=== PATIENT | female | born 1930 | race Asian ===

== ENCOUNTER 2017-07-28 13:57 | Inpatient (IN) | payer MEDICARE, OTHER ==
[2017-07-28] MEDS ORDERED: PROPOFOL 100 ML (14:12)
[2017-07-28] MEDS: SODIUM CHLORIDE 0.9% 1L BAG IV* (14:15)
[2017-07-28 14:29] LABS: ADD MAN DIFF? NO
[2017-07-28 14:44] LABS: BASOPHILS % 0.3 % (0.0-2.0); EOSINOPHILS # 0.3 10^3/ul (0.0-0.5); EOSINOPHILS % 2.9 % (0.0-7.0); HEMATOCRIT 38.5 % (37.0-47.0); HEMOGLOBIN 11.7 g/dl (12.0-16.0); LYMPHOCYTES % 41.1 % (15.0-51.0); MEAN CORPUSCULAR HEMOGLOBIN 29.1 pg (29.0-33.0); MEAN CORPUSCULAR HGB CONC 30.4 g/dl (32.0-37.0); MEAN CORPUSCULAR VOLUME 95.8 fl (82.0-101.0); MEAN PLATELET VOLUME 9.9 fl (7.4-10.4); MONOCYTE # 0.3 10^3/ul (0.3-0.9); MONOCYTES % 3.1 % (0.0-11.0); NEUTROPHIL # 4.8 10^3/ul (1.6-7.5); NEUTROPHILS % 49.9 % (39.0-77.0); NUCLEATED RED BLOOD CELLS% 0.2 /100WBC (0.0-0.0); PLATELET COUNT 230 10^3/UL (140-415); RED BLOOD COUNT 4.02 10^6/ul (4.20-5.40); RED CELL DISTRIBUTION WIDTH 14.8 % (11.5-14.5)
[2017-07-28 14:44] LABS: WHITE BLOOD COUNT 9.7 10^3/ul (4.8-10.8)
[2017-07-28 14:48] LABS: ALANINE AMINOTRANSFERASE 114 IU/L (13-69); ALBUMIN 3.2 g/dl (3.3-4.9); ALBUMIN/GLOBULIN RATIO 0.91; ALKALINE PHOSPHATASE 197 IU/L (42-121); ANION GAP 21 (8-16); ASPARTATE AMINO TRANSFERASE 184 IU/L (15-46); BILIRUBIN,INDIRECT 0.2 mg/dl (0-1.1); BILIRUBIN,TOTAL 0.2 mg/dl (0.2-1.3); BLOOD UREA NITROGEN 42 mg/dl (7-20); CALCIUM 8.2 mg/dl (8.4-10.2); CARBON DIOXIDE 24 mmol/L (21-31); CHLORIDE 103 mmol/L (97-110); CREATININE 0.98 mg/dl (0.44-1.00); GLUCOSE 173 mg/dl (70-220); SODIUM 144 mmol/L (135-144); TOTAL PROTEIN 6.7 g/dl (6.1-8.1)
[2017-07-28 14:50] LABS: INR 1.22; PROTIME 15.6 Sec (11.9-14.9); PT RATIO 1.2
[2017-07-28 14:51] LABS: PARTIAL THROMBOPLASTIN TIME 38.6 Sec (25.0-35.0)
[2017-07-28 15:02] LABS: TROPONIN-I 0.233 ng/ml (0.00-0.12)
[2017-07-28] MEDS: FENTAnyl 50 MCG/ML VIAL IV ×2 (15:05→17:30)
[2017-07-28] MEDS: FENTAnyl (DRIP) 1000 mcg/100mL 100 ML IV ×3 (15:07→23:21)
[2017-07-28] MEDS ORDERED: NORepinephrine 8MG/250 ML (PMX 250 ML (15:55)
[2017-07-28] MEDS: PIPER-TAZO 3.375 GM IV (PMX) 100 ML IVPB (15:59)
[2017-07-28] MEDS ORDERED: ACETAMINOPHEN 325 MG TAB PO ×2 (16:30→17:00)
[2017-07-28] MEDS ORDERED: ONDANSETRON 4 MG INJ IV ×2 (16:30→17:00)
[2017-07-28] MEDS: VANCOMYCIN 1 GM (PMX) 250 ML IVPB (16:42)
[2017-07-28] MEDS ORDERED: VANCOMYCIN IV PER PHARMACY XX (17:00)
[2017-07-28] MEDS ORDERED: HYDROCODONE/APAP (5/325) TAB PO (17:00)
[2017-07-28 17:21] LABS: LACTIC ACID 1.6 mmol/L (0.5-2.0)
[2017-07-28 18:18] LABS: AADO2 Arterial 250.7 mmHg (7.0-24.0); Allen Test ACCEPTAB; Arterial Base Excess -1.8 mmol/L (-3.0-3); Arterial Blood Gas Oxygen Sat 97.1 mmHG (95.0-100.0); Arterial COHb 0.3 % (0.0-3.0); Arterial Fraction of Oxyhgb 96.6 % (93.0-99.0); Arterial HCO3 26.1 mmol/L (22.0-26.0); Arterial MetHb 0.2 % (0.0-1.5); Arterial Total Hemglobin 11.1 g/dl (12.0-18.0); Arterial pCO2 60.4 mmhg (35-45); MODE VENT - AC; Site Right Radial
[2017-07-28] MEDS: MIDAZOLAM 1 MG/ML 2 ML INJ IV (18:41)
[2017-07-28 19:28] LABS: HEPATITIS B SURFACE ANTIGEN NEGATIVE (NEGATIVE)
[2017-07-28] MEDS: MIDAZOLAM (DRIP) 50 mg/50 mL 50 ML IV (19:29)
[2017-07-28 19:36] LABS: LACTIC ACID 1.5 mmol/L (0.5-2.0)
[2017-07-28 19:42] LABS: ADD UMIC YES; UR AMORPHOUS CRYSTAL MODERATE /HPF (NONE SEEN); UR ASCORBIC ACID NEGATIVE (NEGATIVE); UR BACTERIA FEW /HPF (NONE SEEN); UR BILIRUBIN (Dip) NEGATIVE (NEGATIVE); UR BLOOD (Dip) 3+ mg/dL (NEGATIVE); UR CLARITY CLOUDY (CLEAR); UR COLOR AMBER (YELLOW); UR GLUCOSE (Dip) 1+ mg/dL (NEGATIVE); UR HYALINE CAST FEW /HPF (NONE SEEN); UR KETONES (Dip) NEGATIVE (NEGATIVE); UR LEUKOCYTE ESTERASE (Dip) 1+ Leu/ul (NEGATIVE); UR MUCUS FEW /HPF (NONE SEEN); UR NITRITE (Dip) NEGATIVE (NEGATIVE); UR NONSQUAMOUS EPITHELIAL CELL 1 /HPF (NONE SEEN); UR RBC 118 /HPF (0-5); UR SQUAMOUS EPITHELIAL CELL FEW /HPF (FEW); UR TOTAL PROTEIN (Dip) 3+ mg/dl (NEGATIVE); UR UROBILINOGEN (Dip) 2+ mg/dL (NEGATIVE); UR WBC 79 /HPF (0-5)
[2017-07-28 19:45] LABS: HEPATITIS B SURFACE ANTIBODY POSITIVE (NEGATIVE)
[2017-07-28 19:45] LABS: HEPATITIS C VIRAL ANTIBODY NEGATIVE (NEGATIVE)
[2017-07-28 19:46] LABS: HIV 1&2 ANTIBODY NEGATIVE (NEGATIVE)
[2017-07-28] MEDS: NORepinephrine 8MG/250 ML (PMX 250 ML IV (19:59)
[2017-07-28 20:09] LABS: AMPHETAMINE/METHAMPHETAMINE Negative (NEGATIVE); BARBITURATES Negative (NEGATIVE); BENZODIAZEPINES Negative (NEGATIVE); CANNABINOIDS Negative (NEGATIVE); COCAINE Negative (NEGATIVE); OPIATES Negative (NEGATIVE)
[2017-07-28 20:10] LABS: AADO2 Arterial 148.7 mmHg (7.0-24.0); Allen Test ACCEPTAB; Arterial Base Excess 1.8 mmol/L (-3.0-3); Arterial Blood Gas Oxygen Sat 99.3 mmHG (95.0-100.0); Arterial COHb 0.3 % (0.0-3.0); Arterial Fraction of Oxyhgb 98.8 % (93.0-99.0); Arterial HCO3 27.5 mmol/L (22.0-26.0); Arterial MetHb 0.2 % (0.0-1.5); Arterial Total Hemglobin 10.5 g/dl (12.0-18.0); Arterial pCO2 47.8 mmhg (35-45); MODE VENT - AC; Site Right Radial
[2017-07-28] MEDS: SOD CHLORIDE 0.9% 1,000 ML IV (20:30)
[2017-07-29] MEDS: PIPER-TAZO 3.375 GM IV (PMX) 100 ML IVPB ×4 (00:43→21:08)
[2017-07-29] MEDS: MIDAZOLAM (DRIP) 50 mg/50 mL 50 ML IV ×2 (00:53→10:17)
[2017-07-29] MEDS: SOD CHLORIDE 0.9% 500 ML IV ×2 (02:31→08:55)
[2017-07-29 04:58] LABS: ADD MAN DIFF? NO
[2017-07-29 05:04] LABS: BASOPHILS % 0.1 % (0.0-2.0); EOSINOPHILS # 0.5 10^3/ul (0.0-0.5); EOSINOPHILS % 6.7 % (0.0-7.0); HEMOGLOBIN 8.9 g/dl (12.0-16.0); LYMPHOCYTES # 1.1 10^3/ul (0.8-2.9); LYMPHOCYTES % 15.8 % (15.0-51.0); MEAN CORPUSCULAR HEMOGLOBIN 29.2 pg (29.0-33.0); MEAN CORPUSCULAR HGB CONC 31.8 g/dl (32.0-37.0); MEAN CORPUSCULAR VOLUME 91.8 fl (82.0-101.0); MEAN PLATELET VOLUME 10.2 fl (7.4-10.4); MONOCYTE # 0.4 10^3/ul (0.3-0.9); MONOCYTES % 5.5 % (0.0-11.0); NEUTROPHIL # 5.1 10^3/ul (1.6-7.5); NEUTROPHILS % 71.6 % (39.0-77.0); PLATELET COUNT 159 10^3/UL (140-415); RED BLOOD COUNT 3.05 10^6/ul (4.20-5.40)
[2017-07-29 05:04] LABS: WHITE BLOOD COUNT 7.1 10^3/ul (4.8-10.8)
[2017-07-29 05:23] LABS: HEMOGLOBIN A1C 6.2 % (0-5.9)
[2017-07-29 05:32] LABS: ALANINE AMINOTRANSFERASE 103 IU/L (13-69); ALBUMIN/GLOBULIN RATIO 0.74; ALKALINE PHOSPHATASE 130 IU/L (42-121); ANION GAP 12 (8-16); ASPARTATE AMINO TRANSFERASE 119 IU/L (15-46); BILIRUBIN,INDIRECT 0.5 mg/dl (0-1.1); BILIRUBIN,TOTAL 0.5 mg/dl (0.2-1.3); BLOOD UREA NITROGEN 45 mg/dl (7-20); CALCIUM 7.3 mg/dl (8.4-10.2); CARBON DIOXIDE 27 mmol/L (21-31); CHLORIDE 106 mmol/L (97-110); CHOL/HDL RATIO 1.8 RATIO; CHOLESTEROL 72 mg/dl (100-200); CREATININE 0.87 mg/dl (0.44-1.00); GLUCOSE 75 mg/dl (70-220); HDL CHOLESTEROL 38 mg/dl (33-92); LDL CHOLESTEROL,CALCULATED 20 mg/dl; POTASSIUM 3.6 mmol/L (3.5-5.1); SODIUM 141 mmol/L (135-144); TOTAL PROTEIN 4.7 g/dl (6.1-8.1); TRIGLYCERIDES 69 mg/dl (0-149)
[2017-07-29] MEDS: PANTOPRAZOLE 40 MG INJ IV (05:46)
[2017-07-29 11:56] LABS: TROPONIN-I 0.381 ng/ml (0.00-0.12)
[2017-07-29] MEDS: SOD CHLORIDE 0.45% 1,000 ML IV (14:57)
[2017-07-29] MEDS: DEXTROSE 5% IVPB (17:27)
[2017-07-29] MEDS: VANCOMYCIN IVPB (17:27)
[2017-07-30 04:57] LABS: ADD MAN DIFF? NO
[2017-07-30 05:00] LABS: WHITE BLOOD COUNT 11.8 10^3/ul (4.8-10.8)
[2017-07-30 05:00] LABS: BASOPHILS % 0.2 % (0.0-2.0); EOSINOPHILS # 0.7 10^3/ul (0.0-0.5); EOSINOPHILS % 5.6 % (0.0-7.0); HEMATOCRIT 28.2 % (37.0-47.0); HEMOGLOBIN 8.9 g/dl (12.0-16.0); LYMPHOCYTES # 0.9 10^3/ul (0.8-2.9); LYMPHOCYTES % 7.7 % (15.0-51.0); MEAN CORPUSCULAR HGB CONC 31.6 g/dl (32.0-37.0); MEAN CORPUSCULAR VOLUME 91.9 fl (82.0-101.0); MEAN PLATELET VOLUME 10.6 fl (7.4-10.4); MONOCYTE # 0.5 10^3/ul (0.3-0.9); MONOCYTES % 4.2 % (0.0-11.0); NEUTROPHIL # 9.7 10^3/ul (1.6-7.5); NEUTROPHILS % 81.8 % (39.0-77.0); PLATELET COUNT 169 10^3/UL (140-415); RED BLOOD COUNT 3.07 10^6/ul (4.20-5.40)
[2017-07-30] MEDS: PIPER-TAZO 3.375 GM IV (PMX) 100 ML IVPB ×5 (05:21→23:26)
[2017-07-30] MEDS: PANTOPRAZOLE 40 MG INJ IV (05:22)
[2017-07-30] MEDS: SOD CHLORIDE 0.45% 1,000 ML IV ×2 (05:22→22:48)
[2017-07-30 05:23] LABS: AMMONIA < 9 umol/l (9-30)
[2017-07-30 05:24] LABS: MAGNESIUM 1.9 mg/dl (1.7-2.5)
[2017-07-30 05:25] LABS: ALANINE AMINOTRANSFERASE 94 IU/L (13-69); ALBUMIN 2.1 g/dl (3.3-4.9); ALBUMIN/GLOBULIN RATIO 0.75; ALKALINE PHOSPHATASE 138 IU/L (42-121); ANION GAP 11 (8-16); ASPARTATE AMINO TRANSFERASE 91 IU/L (15-46); BILIRUBIN,INDIRECT 0.5 mg/dl (0-1.1); BILIRUBIN,TOTAL 0.5 mg/dl (0.2-1.3); BLOOD UREA NITROGEN 38 mg/dl (7-20); CALCIUM 7.5 mg/dl (8.4-10.2); CARBON DIOXIDE 25 mmol/L (21-31); CHLORIDE 109 mmol/L (97-110); GLUCOSE 53 mg/dl (70-220); POTASSIUM 3.4 mmol/L (3.5-5.1); SODIUM 142 mmol/L (135-144); TOTAL PROTEIN 4.9 g/dl (6.1-8.1)
[2017-07-30] MEDS: NACL 0.9% 3 ML SYG IV (06:33)
[2017-07-30] MEDS: POTASSIUM CHLORIDE 20 MEQ POWDER FOR ORAL SOLN NGT (14:55)
[2017-07-30] MEDS: VANCOMYCIN IVPB (17:30)
[2017-07-30] MEDS: DEXTROSE 5% IVPB (17:30)
[2017-07-31] MEDS: PIPER-TAZO 3.375 GM IV (PMX) 100 ML IVPB ×4 (05:09→23:31)
[2017-07-31] MEDS: PANTOPRAZOLE 40 MG INJ IV (05:10)
[2017-07-31 05:12] LABS: ADD MAN DIFF? NO
[2017-07-31 05:16] LABS: BASOPHILS % 0.2 % (0.0-2.0); EOSINOPHILS # 0.5 10^3/ul (0.0-0.5); EOSINOPHILS % 4.4 % (0.0-7.0); HEMATOCRIT 26.6 % (37.0-47.0); HEMOGLOBIN 8.4 g/dl (12.0-16.0); LYMPHOCYTES # 1.3 10^3/ul (0.8-2.9); LYMPHOCYTES % 11.1 % (15.0-51.0); MEAN CORPUSCULAR HEMOGLOBIN 29.1 pg (29.0-33.0); MEAN CORPUSCULAR HGB CONC 31.6 g/dl (32.0-37.0); MEAN PLATELET VOLUME 11.1 fl (7.4-10.4); MONOCYTE # 0.9 10^3/ul (0.3-0.9); MONOCYTES % 7.2 % (0.0-11.0); NEUTROPHIL # 9.1 10^3/ul (1.6-7.5); NEUTROPHILS % 76.8 % (39.0-77.0); PLATELET COUNT 167 10^3/UL (140-415); RED BLOOD COUNT 2.89 10^6/ul (4.20-5.40); RED CELL DISTRIBUTION WIDTH 15.4 % (11.5-14.5)
[2017-07-31 05:16] LABS: WHITE BLOOD COUNT 11.8 10^3/ul (4.8-10.8)
[2017-07-31 05:44] LABS: ANION GAP 9 (8-16); BLOOD UREA NITROGEN 28 mg/dl (7-20); CALCIUM 7.5 mg/dl (8.4-10.2); CARBON DIOXIDE 29 mmol/L (21-31); CHLORIDE 108 mmol/L (97-110); CREATININE 0.77 mg/dl (0.44-1.00); GLUCOSE 130 mg/dl (70-220); MAGNESIUM 1.9 mg/dl (1.7-2.5); PHOSPHORUS 2.9 mg/dl (2.5-4.9); POTASSIUM 3.8 mmol/L (3.5-5.1); SODIUM 142 mmol/L (135-144)
[2017-07-31] MEDS ORDERED: hydrALAzine 20 MG INJ (10:18)
[2017-07-31] MEDS ORDERED: hydrALAzine 20 MG INJ IV (10:30)
[2017-07-31] MEDS: hydrALAzine 20 MG INJ IV (12:33)
[2017-07-31] MEDS: SOD CHLORIDE 0.45% 1,000 ML IV (12:36)
[2017-07-31 12:41] LABS: VANCOMYCIN,TROUGH 6.9 ug/ml (10.0-20.0)
[2017-07-31] MEDS: VANCOMYCIN 1 GM 250 ML IVPB (14:00)
[2017-07-31] MEDS: LORAZEPAM 2 MG INJ IV (19:54)
[2017-07-31] MEDS: morphine 2 MG INJ IV (23:19)
[2017-08-01] MEDS: SOD CHLORIDE 0.45% 1,000 ML IV ×3 (02:11→22:08)
[2017-08-01] MEDS: PANTOPRAZOLE 40 MG INJ IV (05:07)
[2017-08-01] MEDS: PIPER-TAZO 3.375 GM IV (PMX) 100 ML IVPB ×4 (05:07→23:45)
[2017-08-01 05:15] LABS: ADD MAN DIFF? NO
[2017-08-01 05:18] LABS: WHITE BLOOD COUNT 9.8 10^3/ul (4.8-10.8)
[2017-08-01 05:18] LABS: BASOPHILS % 0.1 % (0.0-2.0); EOSINOPHILS % 10.1 % (0.0-7.0); HEMATOCRIT 25.5 % (37.0-47.0); HEMOGLOBIN 8.1 g/dl (12.0-16.0); LYMPHOCYTES # 1.2 10^3/ul (0.8-2.9); LYMPHOCYTES % 11.8 % (15.0-51.0); MEAN CORPUSCULAR HEMOGLOBIN 29.7 pg (29.0-33.0); MEAN CORPUSCULAR HGB CONC 31.8 g/dl (32.0-37.0); MEAN CORPUSCULAR VOLUME 93.4 fl (82.0-101.0); MEAN PLATELET VOLUME 11.2 fl (7.4-10.4); MONOCYTE # 0.8 10^3/ul (0.3-0.9); MONOCYTES % 7.6 % (0.0-11.0); NEUTROPHIL # 6.9 10^3/ul (1.6-7.5); PLATELET COUNT 148 10^3/UL (140-415); RED BLOOD COUNT 2.73 10^6/ul (4.20-5.40); RED CELL DISTRIBUTION WIDTH 15.3 % (11.5-14.5)
[2017-08-01 05:45] LABS: ANION GAP 8 (8-16); BLOOD UREA NITROGEN 17 mg/dl (7-20); CALCIUM 7.9 mg/dl (8.4-10.2); CARBON DIOXIDE 31 mmol/L (21-31); CHLORIDE 106 mmol/L (97-110); CREATININE 0.63 mg/dl (0.44-1.00); GLUCOSE 116 mg/dl (70-220); MAGNESIUM 1.8 mg/dl (1.7-2.5); PHOSPHORUS 2.6 mg/dl (2.5-4.9); POTASSIUM 3.3 mmol/L (3.5-5.1); SODIUM 142 mmol/L (135-144)
[2017-08-01] MEDS: POTASSIUM CHLORIDE 50 ML IVPB ×3 (07:04→11:10)
[2017-08-01 08:46] LABS: AADO2 Arterial 104.7 mmHg (7.0-24.0); Allen Test ACCEPTAB; Arterial Base Excess 3.5 mmol/L (-3.0-3); Arterial Blood Gas Oxygen Sat 89.7 mmHG (95.0-100.0); Arterial Fraction of Oxyhgb 88.6 % (93.0-99.0); Arterial HCO3 28.3 mmol/L (22.0-26.0); Arterial MetHb 0.2 % (0.0-1.5); Arterial Total Hemglobin 9.3 g/dl (12.0-18.0); Arterial pCO2 43.8 mmhg (35-45); MODE VENT - AC; Site Right Radial
[2017-08-01] MEDS: morphine 2 MG INJ IV (11:31)
[2017-08-01] MEDS: hydrALAzine 20 MG INJ IV (12:19)
[2017-08-01] MEDS: VANCOMYCIN 1 GM 250 ML IVPB (14:24)
[2017-08-01] MEDS: LORAZEPAM 2 MG INJ IV (14:29)
[2017-08-01] MEDS: PERMETHRIN 5% 60 GM CR TOP (19:48)
[2017-08-02] MEDS: PIPER-TAZO 3.375 GM IV (PMX) 100 ML IVPB ×4 (05:33→23:45)
[2017-08-02 05:47] LABS: ADD MAN DIFF? NO
[2017-08-02 05:53] LABS: WHITE BLOOD COUNT 9.2 10^3/ul (4.8-10.8)
[2017-08-02 05:53] LABS: BASOPHILS % 0.3 % (0.0-2.0); EOSINOPHILS # 0.9 10^3/ul (0.0-0.5); EOSINOPHILS % 9.6 % (0.0-7.0); HEMATOCRIT 27.6 % (37.0-47.0); HEMOGLOBIN 8.6 g/dl (12.0-16.0); LYMPHOCYTES # 1.3 10^3/ul (0.8-2.9); LYMPHOCYTES % 13.8 % (15.0-51.0); MEAN CORPUSCULAR HEMOGLOBIN 28.9 pg (29.0-33.0); MEAN CORPUSCULAR HGB CONC 31.2 g/dl (32.0-37.0); MEAN CORPUSCULAR VOLUME 92.6 fl (82.0-101.0); MEAN PLATELET VOLUME 11.4 fl (7.4-10.4); MONOCYTE # 0.7 10^3/ul (0.3-0.9); MONOCYTES % 8.1 % (0.0-11.0); NEUTROPHIL # 6.2 10^3/ul (1.6-7.5); NEUTROPHILS % 67.8 % (39.0-77.0); PLATELET COUNT 164 10^3/UL (140-415); RED BLOOD COUNT 2.98 10^6/ul (4.20-5.40); RED CELL DISTRIBUTION WIDTH 15.2 % (11.5-14.5)
[2017-08-02] MEDS: PANTOPRAZOLE 40 MG INJ IV (06:09)
[2017-08-02 06:18] LABS: ALBUMIN 2.4 g/dl (3.3-4.9); ANION GAP 10 (8-16); BLOOD UREA NITROGEN 14 mg/dl (7-20); CALCIUM 8.2 mg/dl (8.4-10.2); CARBON DIOXIDE 28 mmol/L (21-31); CHLORIDE 107 mmol/L (97-110); CREATININE 0.58 mg/dl (0.44-1.00); GLUCOSE 65 mg/dl (70-220); MAGNESIUM 1.7 mg/dl (1.7-2.5); PHOSPHORUS 2.4 mg/dl (2.5-4.9); POTASSIUM 3.9 mmol/L (3.5-5.1); SODIUM 141 mmol/L (135-144)
[2017-08-02] MEDS ORDERED: EPINEPHrine 0.1 MG/ML SYG (07:00)
[2017-08-02] MEDS ORDERED: NA BICARBONATE 8.4% 50 ML SYG (07:00)
[2017-08-02] MEDS: DEXTROSE 5%-0.45% NACL 1,000 ML IV (08:20)
[2017-08-02] MEDS: LORAZEPAM 2 MG INJ IV (09:38)
[2017-08-02] MEDS: VANCOMYCIN 1 GM 250 ML IVPB (14:33)
[2017-08-02] MEDS: morphine 2 MG INJ IV (14:33)
[2017-08-02] MEDS: hydrALAzine 20 MG INJ IV (16:23)
[2017-08-03] MEDS: DEXTROSE 5%-0.45% NACL 1,000 ML IV ×2 (00:23→11:57)
[2017-08-03] MEDS: LORAZEPAM 2 MG INJ IV ×2 (00:23→08:02)
[2017-08-03] MEDS: PANTOPRAZOLE 40 MG INJ IV ×2 (05:09→09:39)
[2017-08-03] MEDS: PIPER-TAZO 3.375 GM IV (PMX) 100 ML IVPB ×4 (05:09→21:08)
[2017-08-03] MEDS: morphine 2 MG INJ IV ×4 (05:32→21:05)
[2017-08-03 05:38] LABS: ADD MAN DIFF? NO
[2017-08-03 05:44] LABS: BASOPHILS % 0.3 % (0.0-2.0); EOSINOPHILS # 0.9 10^3/ul (0.0-0.5); HEMATOCRIT 29.7 % (37.0-47.0); HEMOGLOBIN 9.2 g/dl (12.0-16.0); LYMPHOCYTES % 13.4 % (15.0-51.0); MEAN CORPUSCULAR HEMOGLOBIN 29.2 pg (29.0-33.0); MEAN CORPUSCULAR VOLUME 94.3 fl (82.0-101.0); MEAN PLATELET VOLUME 11.5 fl (7.4-10.4); MONOCYTE # 0.9 10^3/ul (0.3-0.9); MONOCYTES % 11.7 % (0.0-11.0); NEUTROPHIL # 4.8 10^3/ul (1.6-7.5); NEUTROPHILS % 62.2 % (39.0-77.0); PLATELET COUNT 195 10^3/UL (140-415); RED BLOOD COUNT 3.15 10^6/ul (4.20-5.40); RED CELL DISTRIBUTION WIDTH 15.3 % (11.5-14.5)
[2017-08-03 05:44] LABS: WHITE BLOOD COUNT 7.8 10^3/ul (4.8-10.8)
[2017-08-03 06:08] LABS: ALBUMIN 2.5 g/dl (3.3-4.9); ANION GAP 10 (8-16); BLOOD UREA NITROGEN 15 mg/dl (7-20); CALCIUM 8.2 mg/dl (8.4-10.2); CARBON DIOXIDE 27 mmol/L (21-31); CHLORIDE 105 mmol/L (97-110); CREATININE 0.56 mg/dl (0.44-1.00); GLUCOSE 146 mg/dl (70-220); MAGNESIUM 1.8 mg/dl (1.7-2.5); PHOSPHORUS 2.7 mg/dl (2.5-4.9); POTASSIUM 3.8 mmol/L (3.5-5.1); SODIUM 138 mmol/L (135-144)
[2017-08-03] MEDS: FUROSEMIDE 40 MG INJ IV ×2 (09:42→17:39)
[2017-08-03 13:03] LABS: VANCOMYCIN,TROUGH 9.5 ug/ml (10.0-20.0)
[2017-08-03] MEDS: VANCOMYCIN 1.25 GM in SOD CHLORIDE 0.9% 250 ML IVPB (16:57)
[2017-08-04] MEDS: DEXTROSE 5%-0.45% NACL 1,000 ML IV ×2 (00:30→11:02)
[2017-08-04] MEDS: PIPER-TAZO 3.375 GM IV (PMX) 100 ML IVPB ×5 (03:02→17:18)
[2017-08-04] MEDS: morphine 2 MG INJ IV ×3 (03:06→21:02)
[2017-08-04] MEDS: PANTOPRAZOLE 40 MG INJ IV (05:03)
[2017-08-04] MEDS: FUROSEMIDE 40 MG INJ IV ×2 (05:03→17:18)
[2017-08-04 05:37] LABS: ADD MAN DIFF? NO
[2017-08-04 05:42] LABS: WHITE BLOOD COUNT 6.7 10^3/ul (4.8-10.8)
[2017-08-04 05:42] LABS: BASOPHILS % 0.3 % (0.0-2.0); EOSINOPHILS % 15.2 % (0.0-7.0); HEMATOCRIT 23.7 % (37.0-47.0); HEMOGLOBIN 7.6 g/dl (12.0-16.0); LYMPHOCYTES # 1.2 10^3/ul (0.8-2.9); LYMPHOCYTES % 17.7 % (15.0-51.0); MEAN CORPUSCULAR HEMOGLOBIN 29.2 pg (29.0-33.0); MEAN CORPUSCULAR HGB CONC 32.1 g/dl (32.0-37.0); MEAN CORPUSCULAR VOLUME 91.2 fl (82.0-101.0); MEAN PLATELET VOLUME 11.2 fl (7.4-10.4); MONOCYTE # 0.8 10^3/ul (0.3-0.9); MONOCYTES % 11.6 % (0.0-11.0); NEUTROPHIL # 3.7 10^3/ul (1.6-7.5); NEUTROPHILS % 54.9 % (39.0-77.0); PLATELET COUNT 181 10^3/UL (140-415); RED CELL DISTRIBUTION WIDTH 15.2 % (11.5-14.5)
[2017-08-04 06:02] LABS: ANION GAP 8 (8-16); BLOOD UREA NITROGEN 14 mg/dl (7-20); CALCIUM 7.6 mg/dl (8.4-10.2); CARBON DIOXIDE 35 mmol/L (21-31); CHLORIDE 100 mmol/L (97-110); CREATININE 0.64 mg/dl (0.44-1.00); GLUCOSE 123 mg/dl (70-220); MAGNESIUM 1.6 mg/dl (1.7-2.5); PHOSPHORUS 2.4 mg/dl (2.5-4.9); POTASSIUM 3.2 mmol/L (3.5-5.1); SODIUM 140 mmol/L (135-144)
[2017-08-04 09:10] LABS: AADO2 Arterial 87.2 mmHg (7.0-24.0); Allen Test ACCEPTAB; Arterial Base Excess 9.9 mmol/L (-3.0-3); Arterial Blood Gas Oxygen Sat 93.6 mmHG (95.0-100.0); Arterial COHb 0.8 % (0.0-3.0); Arterial Fraction of Oxyhgb 92.6 % (93.0-99.0); Arterial HCO3 35.2 mmol/L (22.0-26.0); Arterial MetHb 0.3 % (0.0-1.5); Arterial Total Hemglobin 10.9 g/dl (12.0-18.0); Arterial pCO2 51.4 mmhg (35-45); MODE VENT - AC; Site Right Radial
[2017-08-04] MEDS: MAGNESIUM SULFATE 2 GM/50 ML 50 ML IVPB (11:01)
[2017-08-04] MEDS: hydrALAzine 20 MG INJ IV (11:02)
[2017-08-04] MEDS: VANCOMYCIN 1.25 GM in SOD CHLORIDE 0.9% 250 ML IVPB (15:10)
[2017-08-04] MEDS: KCL 30 MEQ in NS 250 ML IVPB X1 IVPB (16:35)
[2017-08-05] MEDS: PIPER-TAZO 3.375 GM IV (PMX) 100 ML IVPB ×5 (00:22→23:43)
[2017-08-05] MEDS: LORAZEPAM 2 MG INJ IV ×2 (00:29→19:24)
[2017-08-05] MEDS: DEXTROSE 5%-0.45% NACL 1,000 ML IV ×2 (04:52→16:35)
[2017-08-05] MEDS: FUROSEMIDE 40 MG INJ IV ×2 (05:06→18:03)
[2017-08-05] MEDS: morphine 2 MG INJ IV ×2 (05:06→15:09)
[2017-08-05] MEDS: PANTOPRAZOLE 40 MG INJ IV (05:06)
[2017-08-05 05:08] LABS: ADD MAN DIFF? NO
[2017-08-05 05:14] LABS: WHITE BLOOD COUNT 8.4 10^3/ul (4.8-10.8)
[2017-08-05 05:14] LABS: BASOPHILS % 0.1 % (0.0-2.0); EOSINOPHILS # 1.1 10^3/ul (0.0-0.5); EOSINOPHILS % 13.1 % (0.0-7.0); HEMATOCRIT 24.6 % (37.0-47.0); LYMPHOCYTES # 1.3 10^3/ul (0.8-2.9); LYMPHOCYTES % 15.6 % (15.0-51.0); MEAN CORPUSCULAR HEMOGLOBIN 29.2 pg (29.0-33.0); MEAN CORPUSCULAR HGB CONC 32.5 g/dl (32.0-37.0); MEAN CORPUSCULAR VOLUME 89.8 fl (82.0-101.0); MEAN PLATELET VOLUME 10.9 fl (7.4-10.4); MONOCYTE # 0.9 10^3/ul (0.3-0.9); MONOCYTES % 10.3 % (0.0-11.0); NEUTROPHIL # 5.1 10^3/ul (1.6-7.5); NEUTROPHILS % 60.7 % (39.0-77.0); PLATELET COUNT 208 10^3/UL (140-415); RED BLOOD COUNT 2.74 10^6/ul (4.20-5.40); RED CELL DISTRIBUTION WIDTH 15.3 % (11.5-14.5)
[2017-08-05 06:19] LABS: ALBUMIN 2.2 g/dl (3.3-4.9); ANION GAP 8 (8-16); BLOOD UREA NITROGEN 12 mg/dl (7-20); CALCIUM 7.5 mg/dl (8.4-10.2); CARBON DIOXIDE 37 mmol/L (21-31); CHLORIDE 95 mmol/L (97-110); CREATININE 0.64 mg/dl (0.44-1.00); GLUCOSE 132 mg/dl (70-220); MAGNESIUM 1.8 mg/dl (1.7-2.5); PHOSPHORUS 2.5 mg/dl (2.5-4.9); SODIUM 137 mmol/L (135-144)
[2017-08-05 06:39] LABS: POTASSIUM 2.8 mmol/L (3.5-5.1)
[2017-08-05] MEDS: MAGNESIUM SULFATE 1 GM/D5W 100 ML IVPB (08:36)
[2017-08-05] MEDS: POTASSIUM CHLORIDE 100 ML IVPB ×3 (09:52→14:24)
[2017-08-05 14:38] LABS: ANION GAP 7 (8-16); BLOOD UREA NITROGEN 12 mg/dl (7-20); CALCIUM 7.7 mg/dl (8.4-10.2); CARBON DIOXIDE 40 mmol/L (21-31); CHLORIDE 91 mmol/L (97-110); CREATININE 0.62 mg/dl (0.44-1.00); GLUCOSE 117 mg/dl (70-220); POTASSIUM 3.3 mmol/L (3.5-5.1); SODIUM 135 mmol/L (135-144)
[2017-08-05] MEDS: VANCOMYCIN 1.25 GM in SOD CHLORIDE 0.9% 250 ML IVPB (15:52)
[2017-08-05] MEDS: PERMETHRIN 5% 60 GM CR TOP (22:14)
[2017-08-05 23:07] LABS: POTASSIUM 3.1 mmol/L (3.5-5.1)
[2017-08-05] MEDS: POTASSIUM CHLORIDE 30 MEQ in DEXTROSE 5% 250 ML IV (23:45)
[2017-08-06] MEDS: morphine 2 MG INJ IV ×4 (00:15→20:55)
[2017-08-06 04:57] LABS: ADD MAN DIFF? NO
[2017-08-06 05:21] LABS: ALBUMIN 2.2 g/dl (3.3-4.9); BLOOD UREA NITROGEN 12 mg/dl (7-20); CALCIUM 7.6 mg/dl (8.4-10.2); CHLORIDE 91 mmol/L (97-110); CREATININE 0.62 mg/dl (0.44-1.00); GLUCOSE 140 mg/dl (70-220); MAGNESIUM 1.9 mg/dl (1.7-2.5); PHOSPHORUS 2.4 mg/dl (2.5-4.9); POTASSIUM 3.4 mmol/L (3.5-5.1); SODIUM 135 mmol/L (135-144)
[2017-08-06 05:27] LABS: ANION GAP 7 (8-16)
[2017-08-06] MEDS: PANTOPRAZOLE 40 MG INJ IV (05:27)
[2017-08-06] MEDS: PIPER-TAZO 3.375 GM IV (PMX) 100 ML IVPB ×3 (05:27→17:11)
[2017-08-06 05:28] LABS: CARBON DIOXIDE 40 mmol/L (21-31)
[2017-08-06] MEDS: DEXTROSE 5%-0.45% NACL 1,000 ML IV (05:33)
[2017-08-06] MEDS: FUROSEMIDE 40 MG INJ IV ×2 (05:48→17:10)
[2017-08-06 05:58] LABS: WHITE BLOOD COUNT 7.2 10^3/ul (4.8-10.8)
[2017-08-06 05:58] LABS: EOSINOPHILS # 1.1 10^3/ul (0.0-0.5); EOSINOPHILS % 14.8 % (0.0-7.0); HEMATOCRIT 22.8 % (37.0-47.0); HEMOGLOBIN 7.4 g/dl (12.0-16.0); LYMPHOCYTES # 1.4 10^3/ul (0.8-2.9); LYMPHOCYTES % 18.9 % (15.0-51.0); MEAN CORPUSCULAR HEMOGLOBIN 28.9 pg (29.0-33.0); MEAN CORPUSCULAR HGB CONC 32.5 g/dl (32.0-37.0); MEAN CORPUSCULAR VOLUME 89.1 fl (82.0-101.0); MEAN PLATELET VOLUME 10.6 fl (7.4-10.4); MONOCYTE # 0.7 10^3/ul (0.3-0.9); MONOCYTES % 10.2 % (0.0-11.0); NEUTROPHILS % 55.8 % (39.0-77.0); PLATELET COUNT 202 10^3/UL (140-415); RED BLOOD COUNT 2.56 10^6/ul (4.20-5.40); RED CELL DISTRIBUTION WIDTH 15.5 % (11.5-14.5)
[2017-08-06] MEDS: POTASSIUM CHLORIDE 50 ML IVPB ×2 (10:28→12:31)
[2017-08-06] MEDS: LORAZEPAM 2 MG INJ IV (10:33)
[2017-08-06] MEDS: VANCOMYCIN 1.25 GM in SOD CHLORIDE 0.9% 250 ML IVPB (16:44)
[2017-08-06] MEDS: IVERMECTIN 3 MG TAB PO (17:11)
[2017-08-06 23:08] LABS: POTASSIUM 2.9 mmol/L (3.5-5.1)
[2017-08-07] MEDS: DEXTROSE 5%-0.45% NACL 1,000 ML IV ×2 (00:34→08:30)
[2017-08-07] MEDS: PIPER-TAZO 3.375 GM IV (PMX) 100 ML IVPB ×4 (00:34→17:09)
[2017-08-07] MEDS: POTASSIUM CHLORIDE 50 ML IVPB ×3 (00:48→02:51)
[2017-08-07] MEDS: morphine 2 MG INJ IV ×2 (04:54→10:24)
[2017-08-07 06:03] LABS: ADD MAN DIFF? NO
[2017-08-07] MEDS: FUROSEMIDE 40 MG INJ IV ×2 (06:06→17:09)
[2017-08-07] MEDS: PANTOPRAZOLE 40 MG INJ IV (06:06)
[2017-08-07 06:13] LABS: WHITE BLOOD COUNT 7.7 10^3/ul (4.8-10.8)
[2017-08-07 06:13] LABS: BASOPHILS % 0.3 % (0.0-2.0); EOSINOPHILS # 1.3 10^3/ul (0.0-0.5); EOSINOPHILS % 17.3 % (0.0-7.0); HEMATOCRIT 24.3 % (37.0-47.0); HEMOGLOBIN 7.9 g/dl (12.0-16.0); LYMPHOCYTES # 1.6 10^3/ul (0.8-2.9); LYMPHOCYTES % 21.4 % (15.0-51.0); MEAN CORPUSCULAR HEMOGLOBIN 28.8 pg (29.0-33.0); MEAN CORPUSCULAR HGB CONC 32.5 g/dl (32.0-37.0); MEAN CORPUSCULAR VOLUME 88.7 fl (82.0-101.0); MEAN PLATELET VOLUME 11.3 fl (7.4-10.4); MONOCYTE # 0.7 10^3/ul (0.3-0.9); MONOCYTES % 8.5 % (0.0-11.0); NEUTROPHILS % 52.2 % (39.0-77.0); PLATELET COUNT 261 10^3/UL (140-415); RED BLOOD COUNT 2.74 10^6/ul (4.20-5.40); RED CELL DISTRIBUTION WIDTH 15.5 % (11.5-14.5)
[2017-08-07 06:47] LABS: ALBUMIN 2.4 g/dl (3.3-4.9); BLOOD UREA NITROGEN 12 mg/dl (7-20); CALCIUM 7.8 mg/dl (8.4-10.2); CHLORIDE 90 mmol/L (97-110); CREATININE 0.69 mg/dl (0.44-1.00); GLUCOSE 115 mg/dl (70-220); MAGNESIUM 1.8 mg/dl (1.7-2.5); PHOSPHORUS 2.7 mg/dl (2.5-4.9); POTASSIUM 3.2 mmol/L (3.5-5.1); SODIUM 136 mmol/L (135-144)
[2017-08-07 06:54] LABS: ANION GAP 9 (8-16)
[2017-08-07 06:55] LABS: CARBON DIOXIDE 40 mmol/L (21-31)
[2017-08-07] MEDS: KCL 30 MEQ in NS 250 ML IVPB X1 IVPB (09:14)
[2017-08-07] MEDS: BISACODYL (EC) 5 MG TAB PO (10:23)
[2017-08-07 15:03] LABS: VANCOMYCIN,TROUGH 14.2 ug/ml (10.0-20.0)
[2017-08-07] MEDS: VANCOMYCIN 1.25 GM in SOD CHLORIDE 0.9% 250 ML IVPB (15:31)
[2017-08-07] MEDS: LORAZEPAM 2 MG INJ IV (19:06)
[2017-08-07] MEDS ORDERED: PERMETHRIN 5% 60 GM CR TOP (21:00)
[2017-08-07 23:22] LABS: BLOOD UREA NITROGEN 13 mg/dl (7-20); CALCIUM 7.9 mg/dl (8.4-10.2); CHLORIDE 91 mmol/L (97-110); CREATININE 0.74 mg/dl (0.44-1.00); GLUCOSE 122 mg/dl (70-220); SODIUM 135 mmol/L (135-144)
[2017-08-07 23:28] LABS: ANION GAP 7 (8-16)
[2017-08-07 23:34] LABS: CARBON DIOXIDE 40 mmol/L (21-31); POTASSIUM 2.8 mmol/L (3.5-5.1)
[2017-08-08] MEDS: POTASSIUM CHLORIDE 20 MEQ POWDER FOR ORAL SOLN GTB (00:21)
[2017-08-08] MEDS: PIPER-TAZO 3.375 GM IV (PMX) 100 ML IVPB ×5 (00:21→23:28)
[2017-08-08] MEDS: POTASSIUM CHLORIDE 50 ML IVPB ×3 (02:27→06:07)
[2017-08-08] MEDS: DIPHENHYDRAMINE 50 MG INJ IV ×2 (04:09→22:33)
[2017-08-08] MEDS: PANTOPRAZOLE 40 MG INJ IV (05:19)
[2017-08-08] MEDS: FUROSEMIDE 40 MG INJ IV ×2 (05:24→19:40)
[2017-08-08 05:40] LABS: ADD MAN DIFF? NO
[2017-08-08 05:46] LABS: WHITE BLOOD COUNT 7.9 10^3/ul (4.8-10.8)
[2017-08-08 05:46] LABS: BASOPHILS % 0.1 % (0.0-2.0); EOSINOPHILS # 1.4 10^3/ul (0.0-0.5); EOSINOPHILS % 17.3 % (0.0-7.0); HEMATOCRIT 24.9 % (37.0-47.0); HEMOGLOBIN 8.2 g/dl (12.0-16.0); LYMPHOCYTES # 1.7 10^3/ul (0.8-2.9); LYMPHOCYTES % 21.9 % (15.0-51.0); MEAN CORPUSCULAR HEMOGLOBIN 29.3 pg (29.0-33.0); MEAN CORPUSCULAR HGB CONC 32.9 g/dl (32.0-37.0); MEAN CORPUSCULAR VOLUME 88.9 fl (82.0-101.0); MEAN PLATELET VOLUME 10.7 fl (7.4-10.4); MONOCYTE # 0.7 10^3/ul (0.3-0.9); MONOCYTES % 8.8 % (0.0-11.0); NEUTROPHIL # 4.1 10^3/ul (1.6-7.5); NEUTROPHILS % 51.6 % (39.0-77.0); PLATELET COUNT 293 10^3/UL (140-415); RED CELL DISTRIBUTION WIDTH 15.7 % (11.5-14.5)
[2017-08-08 06:40] LABS: ANION GAP 10 (8-16); BLOOD UREA NITROGEN 13 mg/dl (7-20); CALCIUM 8.1 mg/dl (8.4-10.2); CARBON DIOXIDE 38 mmol/L (21-31); CHLORIDE 94 mmol/L (97-110); CREATININE 0.78 mg/dl (0.44-1.00); GLUCOSE 91 mg/dl (70-220); MAGNESIUM 2.1 mg/dl (1.7-2.5); POTASSIUM 3.7 mmol/L (3.5-5.1); SODIUM 138 mmol/L (135-144)
[2017-08-08 11:31] LABS: ANION GAP 9 (8-16); BLOOD UREA NITROGEN 13 mg/dl (7-20); CALCIUM 8.3 mg/dl (8.4-10.2); CARBON DIOXIDE 40 mmol/L (21-31); CHLORIDE 92 mmol/L (97-110); GLUCOSE 114 mg/dl (70-220); POTASSIUM 3.3 mmol/L (3.5-5.1); SODIUM 138 mmol/L (135-144)
[2017-08-08] MEDS: morphine 2 MG INJ IV (12:04)
[2017-08-08] MEDS: KCL 30 MEQ in NS 250 ML IVPB X1 IVPB (13:57)
[2017-08-08] MEDS: LORAZEPAM 2 MG INJ IV ×2 (15:49→23:28)
[2017-08-08] MEDS: VANCOMYCIN 1.25 GM in SOD CHLORIDE 0.9% 250 ML IVPB (15:59)
[2017-08-09] MEDS: morphine 2 MG INJ IV ×2 (03:59→22:09)
[2017-08-09 05:42] LABS: ADD MAN DIFF? NO
[2017-08-09 05:43] LABS: WHITE BLOOD COUNT 8.3 10^3/ul (4.8-10.8)
[2017-08-09 05:43] LABS: BASOPHILS % 0.1 % (0.0-2.0); EOSINOPHILS # 1.4 10^3/ul (0.0-0.5); EOSINOPHILS % 17.1 % (0.0-7.0); HEMATOCRIT 26.4 % (37.0-47.0); HEMOGLOBIN 8.6 g/dl (12.0-16.0); LYMPHOCYTES % 23.7 % (15.0-51.0); MEAN CORPUSCULAR HGB CONC 32.6 g/dl (32.0-37.0); MEAN CORPUSCULAR VOLUME 88.9 fl (82.0-101.0); MEAN PLATELET VOLUME 10.9 fl (7.4-10.4); MONOCYTE # 0.8 10^3/ul (0.3-0.9); MONOCYTES % 9.2 % (0.0-11.0); NEUTROPHIL # 4.1 10^3/ul (1.6-7.5); NEUTROPHILS % 49.5 % (39.0-77.0); PLATELET COUNT 313 10^3/UL (140-415); RED BLOOD COUNT 2.97 10^6/ul (4.20-5.40); RED CELL DISTRIBUTION WIDTH 15.8 % (11.5-14.5)
[2017-08-09 06:03] LABS: ANION GAP 9 (8-16); BLOOD UREA NITROGEN 16 mg/dl (7-20); CALCIUM 8.1 mg/dl (8.4-10.2); CARBON DIOXIDE 37 mmol/L (21-31); CHLORIDE 95 mmol/L (97-110); CREATININE 0.89 mg/dl (0.44-1.00); GLUCOSE 102 mg/dl (70-220); POTASSIUM 3.2 mmol/L (3.5-5.1); SODIUM 138 mmol/L (135-144)
[2017-08-09] MEDS: PIPER-TAZO 3.375 GM IV (PMX) 100 ML IVPB ×3 (06:09→19:11)
[2017-08-09] MEDS: PANTOPRAZOLE 40 MG INJ IV (06:10)
[2017-08-09] MEDS: FUROSEMIDE 40 MG INJ IV (06:10)
[2017-08-09] MEDS: POTASSIUM CHLORIDE 30 MEQ in DEXTROSE 5% 250 ML IV (08:46)
[2017-08-09] MEDS: DIPHENHYDRAMINE 50 MG INJ IV (10:38)
[2017-08-09] MEDS: BISACODYL (EC) 5 MG TAB PO (10:38)
[2017-08-09] MEDS: VANCOMYCIN 1.25 GM in SOD CHLORIDE 0.9% 250 ML IVPB (15:51)
[2017-08-09] MEDS: LACTULOSE 30ML CUP NGT (15:51)
[2017-08-10] MEDS: PIPER-TAZO 3.375 GM IV (PMX) 100 ML IVPB ×4 (00:52→17:02)
[2017-08-10] MEDS: morphine 2 MG INJ IV ×3 (03:00→18:33)
[2017-08-10] MEDS: LORAZEPAM 2 MG INJ IV (04:45)
[2017-08-10 05:36] LABS: ADD MAN DIFF? NO
[2017-08-10 05:44] LABS: WHITE BLOOD COUNT 9.2 10^3/ul (4.8-10.8)
[2017-08-10 05:44] LABS: BASOPHILS % 0.1 % (0.0-2.0); EOSINOPHILS # 1.6 10^3/ul (0.0-0.5); EOSINOPHILS % 16.9 % (0.0-7.0); HEMOGLOBIN 8.6 g/dl (12.0-16.0); LYMPHOCYTES # 1.7 10^3/ul (0.8-2.9); LYMPHOCYTES % 18.4 % (15.0-51.0); MEAN CORPUSCULAR HEMOGLOBIN 29.6 pg (29.0-33.0); MEAN CORPUSCULAR HGB CONC 33.1 g/dl (32.0-37.0); MEAN CORPUSCULAR VOLUME 89.3 fl (82.0-101.0); MEAN PLATELET VOLUME 10.8 fl (7.4-10.4); MONOCYTE # 0.7 10^3/ul (0.3-0.9); MONOCYTES % 7.3 % (0.0-11.0); NEUTROPHIL # 5.2 10^3/ul (1.6-7.5); NEUTROPHILS % 57.1 % (39.0-77.0); NUCLEATED RED BLOOD CELLS # 0.1 10^3/ul (0.0-0.0); NUCLEATED RED BLOOD CELLS% 0.5 /100WBC (0.0-0.0); PLATELET COUNT 345 10^3/UL (140-415); RED BLOOD COUNT 2.91 10^6/ul (4.20-5.40); RED CELL DISTRIBUTION WIDTH 15.7 % (11.5-14.5)
[2017-08-10] MEDS: DIPHENHYDRAMINE 50 MG INJ IV ×3 (06:21→18:33)
[2017-08-10] MEDS: PANTOPRAZOLE 40 MG INJ IV (06:21)
[2017-08-10 07:04] LABS: ANION GAP 15 (8-16); BLOOD UREA NITROGEN 16 mg/dl (7-20); CALCIUM 8.2 mg/dl (8.4-10.2); CARBON DIOXIDE 34 mmol/L (21-31); CHLORIDE 97 mmol/L (97-110); CREATININE 0.82 mg/dl (0.44-1.00); GLUCOSE 91 mg/dl (70-220); MAGNESIUM 2.5 mg/dl (1.7-2.5); PHOSPHORUS 3.1 mg/dl (2.5-4.9); POTASSIUM 3.5 mmol/L (3.5-5.1); SODIUM 142 mmol/L (135-144)
[2017-08-10] MEDS: FUROSEMIDE 20 MG INJ IV (08:33)
[2017-08-10] MEDS: POTASSIUM CHLORIDE 100 ML IVPB (12:43)
[2017-08-10 15:02] LABS: VANCOMYCIN,TROUGH 17.7 ug/ml (10.0-20.0)
[2017-08-10] MEDS: VANCOMYCIN 1 GM 250 ML IVPB (15:28)
[2017-08-11] MEDS: PIPER-TAZO 3.375 GM IV (PMX) 100 ML IVPB ×4 (00:27→18:31)
[2017-08-11] MEDS: PANTOPRAZOLE 40 MG INJ IV (05:28)
[2017-08-11] MEDS: DIPHENHYDRAMINE 50 MG INJ IV ×3 (05:28→18:59)
[2017-08-11] MEDS: morphine 2 MG INJ IV ×2 (05:38→08:49)
[2017-08-11] MEDS: FUROSEMIDE 20 MG INJ IV (08:49)
[2017-08-11] MEDS: VANCOMYCIN 1 GM 250 ML IVPB (15:11)
[2017-08-11] MEDS: LORAZEPAM 2 MG INJ IV (16:14)
[2017-08-12] MEDS: PANTOPRAZOLE 40 MG INJ IV (06:47)
[2017-08-12] MEDS: FUROSEMIDE 20 MG INJ IV (08:01)
[2017-08-12] MEDS: DOXYCYCLINE 100 MG in SOD CHLORIDE 0.9% 250 ML IVPB ×2 (13:43→21:23)
[2017-08-12] MEDS: LORAZEPAM 2 MG INJ IV ×2 (14:14→23:53)
[2017-08-12] MEDS: DIPHENHYDRAMINE 50 MG INJ IV (16:15)
[2017-08-12] MEDS: morphine 2 MG INJ IV ×2 (17:09→21:19)
[2017-08-13] MEDS: morphine 2 MG INJ IV ×4 (01:19→13:11)
[2017-08-13 05:05] LABS: AADO2 Arterial 76.8 mmHg (7.0-24.0); Allen Test ACCEPTAB; Arterial Base Excess 5.8 mmol/L (-3.0-3); Arterial Blood Gas Oxygen Sat 95.9 mmHG (95.0-100.0); Arterial COHb 0.3 % (0.0-3.0); Arterial Fraction of Oxyhgb 95.4 % (93.0-99.0); Arterial HCO3 30.4 mmol/L (22.0-26.0); Arterial MetHb 0.2 % (0.0-1.5); Arterial Total Hemglobin 10.6 g/dl (12.0-18.0); Arterial pCO2 44.5 mmhg (35-45); MODE VENT-AC; Site Right Radial
[2017-08-13] MEDS: PANTOPRAZOLE 40 MG INJ IV (05:05)
[2017-08-13] MEDS: DIPHENHYDRAMINE 50 MG INJ IV ×4 (05:05→23:48)
[2017-08-13 05:36] LABS: ADD MAN DIFF? NO
[2017-08-13 05:41] LABS: WHITE BLOOD COUNT 7.7 10^3/ul (4.8-10.8)
[2017-08-13 05:41] LABS: BASOPHILS % 0.1 % (0.0-2.0); EOSINOPHILS # 1.3 10^3/ul (0.0-0.5); EOSINOPHILS % 16.6 % (0.0-7.0); HEMATOCRIT 24.9 % (37.0-47.0); HEMOGLOBIN 8.1 g/dl (12.0-16.0); LYMPHOCYTES % 25.3 % (15.0-51.0); MEAN CORPUSCULAR HEMOGLOBIN 29.6 pg (29.0-33.0); MEAN CORPUSCULAR HGB CONC 32.5 g/dl (32.0-37.0); MEAN CORPUSCULAR VOLUME 90.9 fl (82.0-101.0); MEAN PLATELET VOLUME 11.3 fl (7.4-10.4); MONOCYTE # 0.8 10^3/ul (0.3-0.9); MONOCYTES % 10.8 % (0.0-11.0); NEUTROPHIL # 3.6 10^3/ul (1.6-7.5); NEUTROPHILS % 46.8 % (39.0-77.0); PLATELET COUNT 339 10^3/UL (140-415); RED BLOOD COUNT 2.74 10^6/ul (4.20-5.40); RED CELL DISTRIBUTION WIDTH 15.7 % (11.5-14.5)
[2017-08-13 06:02] LABS: ANION GAP 12 (8-16); BLOOD UREA NITROGEN 18 mg/dl (7-20); CALCIUM 8.2 mg/dl (8.4-10.2); CARBON DIOXIDE 32 mmol/L (21-31); CHLORIDE 104 mmol/L (97-110); CREATININE 0.62 mg/dl (0.44-1.00); GLUCOSE 127 mg/dl (70-220); POTASSIUM 3.7 mmol/L (3.5-5.1); SODIUM 144 mmol/L (135-144)
[2017-08-13] MEDS: DOXYCYCLINE 100 MG in SOD CHLORIDE 0.9% 250 ML IVPB ×2 (08:33→21:43)
[2017-08-13] MEDS: FUROSEMIDE 20 MG INJ IV (08:36)
[2017-08-13] MEDS: KCL IVPB (09:46)
[2017-08-13] MEDS: [UNRECOGNIZED DRUG - OTHER] IVPB (09:46)
[2017-08-13] MEDS: LORAZEPAM 2 MG INJ IV (14:16)
[2017-08-13] MEDS: IVERMECTIN 3 MG TAB PO (17:06)
[2017-08-14] MEDS: LORAZEPAM 2 MG INJ IV ×2 (02:34→17:52)
[2017-08-14] MEDS: morphine 2 MG INJ IV (04:16)
[2017-08-14] MEDS: hydrALAzine 20 MG INJ IV (05:28)
[2017-08-14] MEDS: PANTOPRAZOLE 40 MG INJ IV (05:28)
[2017-08-14 06:05] LABS: ADD MAN DIFF? NO
[2017-08-14 06:20] LABS: BASOPHILS % 0.1 % (0.0-2.0); EOSINOPHILS # 1.2 10^3/ul (0.0-0.5); EOSINOPHILS % 15.3 % (0.0-7.0); HEMATOCRIT 24.3 % (37.0-47.0); HEMOGLOBIN 7.8 g/dl (12.0-16.0); LYMPHOCYTES # 1.8 10^3/ul (0.8-2.9); LYMPHOCYTES % 22.8 % (15.0-51.0); MEAN CORPUSCULAR HGB CONC 32.1 g/dl (32.0-37.0); MEAN CORPUSCULAR VOLUME 90.3 fl (82.0-101.0); MEAN PLATELET VOLUME 10.9 fl (7.4-10.4); MONOCYTE # 0.7 10^3/ul (0.3-0.9); MONOCYTES % 9.2 % (0.0-11.0); NEUTROPHIL # 4.1 10^3/ul (1.6-7.5); NEUTROPHILS % 52.3 % (39.0-77.0); PLATELET COUNT 344 10^3/UL (140-415); RED BLOOD COUNT 2.69 10^6/ul (4.20-5.40); RED CELL DISTRIBUTION WIDTH 15.7 % (11.5-14.5)
[2017-08-14 06:20] LABS: WHITE BLOOD COUNT 7.9 10^3/ul (4.8-10.8)
[2017-08-14 06:52] LABS: ANION GAP 13 (8-16); BLOOD UREA NITROGEN 18 mg/dl (7-20); CALCIUM 8.3 mg/dl (8.4-10.2); CARBON DIOXIDE 32 mmol/L (21-31); CHLORIDE 105 mmol/L (97-110); CREATININE 0.69 mg/dl (0.44-1.00); GLUCOSE 106 mg/dl (70-220); MAGNESIUM 2.2 mg/dl (1.7-2.5); PHOSPHORUS 3.2 mg/dl (2.5-4.9); POTASSIUM 3.6 mmol/L (3.5-5.1); SODIUM 146 mmol/L (135-144)
[2017-08-14] MEDS: FUROSEMIDE 20 MG INJ IV (08:17)
[2017-08-14] MEDS: DOXYCYCLINE 100 MG in SOD CHLORIDE 0.9% 250 ML IVPB (08:19)
[2017-08-14 12:01] LABS: AADO2 Arterial 50.8 mmHg (7.0-24.0); Allen Test ACCEPTAB; Arterial Base Excess 6.4 mmol/L (-3.0-3); Arterial Blood Gas Oxygen Sat 95.9 mmHG (95.0-100.0); Arterial COHb 0.3 % (0.0-3.0); Arterial Fraction of Oxyhgb 95.4 % (93.0-99.0); Arterial HCO3 33.4 mmol/L (22.0-26.0); Arterial MetHb 0.2 % (0.0-1.5); Arterial Total Hemglobin 10.7 g/dl (12.0-18.0); Arterial pCO2 61.8 mmhg (35-45); Blood Gas PS 12; MODE VENT - CPAP; Site Right Radial
[2017-08-14] MEDS: CALAMINE/PRAMOXINE LOT 180 ML BTL TOP (13:18)
[2017-08-14] MEDS: morphine (DRIP) 100 MG/100 ML 100 ML IV (18:08)
== END 2017-08-15 00:05 | disposition expired | DRG 870 ==
LOC: ICU 16:22 → E/R 13:57
PROVIDERS: Internal Medicine
PROC: 5A1955Z Respiratory Ventilation, Greater than 96 Consecutive Hours (ICD-10-PCS; principal; 2017-07-28)
PROC: 06HN33Z Insertion of Infusion Device into Left Femoral Vein, Percutaneous Approach (ICD-10-PCS; 2017-07-28)
DX: A41.9 Sepsis, unspecified organism (principal); J96.01 Acute respiratory failure with hypoxia; I21.A1 Myocardial infarction type 2; J69.0 Pneumonitis due to inhalation of food and vomit; R65.21 Severe sepsis with septic shock; E43 Unspecified severe protein-calorie malnutrition; G92 Toxic encephalopathy; I50.31 Acute diastolic (congestive) heart failure; J18.9 Pneumonia, unspecified organism; G93.1 Anoxic brain damage, not elsewhere classified; R64 Cachexia; E87.2 Acidosis; N39.0 Urinary tract infection, site not specified; I27.20 Pulmonary hypertension, unspecified; I95.9 Hypotension, unspecified; I46.9 Cardiac arrest, cause unspecified; F03.90 Unspecified dementia, unspecified severity, without behavioral disturbance, psychotic disturbance, mood disturbance, and anxiety; R00.1 Bradycardia, unspecified; D64.9 Anemia, unspecified; B86 Scabies; R21 Rash and other nonspecific skin eruption; Y95 Nosocomial condition; B95.62 Methicillin resistant Staphylococcus aureus infection as the cause of diseases classified elsewhere; B95.4 Other streptococcus as the cause of diseases classified elsewhere; Z66 Do not resuscitate; Z68.23 Body mass index [BMI] 23.0-23.9, adult; Z88.0 Allergy status to penicillin
CPT/HCPCS: 36415; 36600; 70450; 70551; 71045; 76937; 80048; 80053; 80061; 80069; 80202; 80307; 81001; 82140; 82803; 82962; 83036; 83605; 83735; 84100; 84132; 84443; 84484; 85025; 85610; 85730; 86703; 86706; 86803; 87040; 87081; 87086; 87340; 93005; 93306; 94002; 94003; 94770; 96374; 96375; 96376; 99291-25; J1940